=== PATIENT | male | born 1960 | race Caucasian/White ===

== ENCOUNTER 2021-02-26 06:05 | Emergency (ER) | payer OTHER, SELFPAY ==
[2021-02-26] VITALS (9 sets, daily range): BP systolic 104–144; BP diastolic 73–105; PULSE 66–93; RESP 16–18; TEMP 36.1; O2SAT 95–99
[2021-02-26] MEDS: KETOROLAC 30 MG/ML VIAL (*BKC) IM (08:02)
--- NOTE | 2021-02-26 08:37 | ED.BACK ---
HPI - Back Pain/Injury General Chief Complaint: Back Pain/Injury Stated Complaint: left lower back pain Time Seen by Provider: 02/26/21 07:43 Source: patient History of Present Illness HPI Narrative: Patient presents with lower back pain. Pain reports symptoms started this morning. He reports he was helping with decorations yesterday but felt fine when he went to bed he woke up to use the restroom he noted left-sided back pain. His pain is constantly dull but then will have intermittent sharp crampy sensations. It is triggered with body movement. It does not radiate denies any focal numbness or weakness denies any bowel or bladder incontinence denies any recent spinal instrumentation, IV drug use, personal history of malignancy, recent spinal instrumentation. Related Data Allergies Allergy/AdvReac Type Severity Reaction Status Date / Time No Known Allergies Allergy Mild Verified 02/26/21 06:22 Review of Systems Review of Systems: CONSTITUTIONAL: Denies fever, chills, or sweats. EYES: Denies visual changes, redness, or discharge. ENT: Denies rhinorrhea, congestion, sore throat, or otalgia. CARDIOVASCULAR: Denies chest pain, palpitations, or edema. RESPIRATORY: Denies cough or dyspnea. GASTROINTESTINAL: Denies abdominal pain, nausea, vomiting, or diarrhea. GENITOURINARY: Denies dysuria or hematuria. SKIN: Denies rash or itching. MUSCULOSKELETAL: Denies joint pain, or myalgia. NEUROLOGIC: Denies headache, numbness, dizziness, or weakness. PSYCHIATRIC: Denies anxiety or depression. All systems reviewed & are unremarkable except as noted in HPI and below PMFSH Past Medical History Medical History HLD (hyperlipidemia) HTN (hypertension) Platelets decreased Type 2 diabetes mellitus without complications Family History Family History Sibling Patient's sister is in good health Patient's brother is in good health Mother Family history of malignant neoplasm of brain Other Diabetes mellitus Family history of malignant neoplasm Hypertension Social History Social History Smoking status: Former smoker Smoking end date: 03/22/02 Alcohol intake: current Substance use: never Gender identity (if verbalized by the patient): Male Exam Narrative: GENERAL: Well-appearing, well-nourished, and in no acute distress. HEAD: Normocephalic, atraumatic. EYES: PERRLA and EOMI. ENT: Nares clear, no rhinorrhea or epistaxis. Mucous membranes moist. NECK: Supple. No masses. No JVD ABDOMEN: Soft, nontender, nondistended BACK: Mild tenderness palpation on the left paraspinal lumbar area around 3 to L5 no midline bony tenderness EXTREMITIES: Normal range of motion. No edema. SKIN: Warm, dry, no rash. NEURO: No focal deficits. Alert and oriented x3. PSYCH: Normal mood and affect. Course Reevaluation(s) Reevaluation #1: Patient is resting comfortably has not noted any significant change in symptoms. Symptoms likely represent muscle skeletal back pain and appropriate trial of outpatient supportive therapies. Patient is comfortable with the outpatient plan. Date: 02/26/21 Time: 08:39 Vital Signs Vital signs: Vital Signs Temperature 36.1 C L 02/26/21 06:10 Pulse Rate 85 02/26/21 06:10 Respiratory Rate 16 02/26/21 06:10 Blood Pressure 123/105 H 02/26/21 06:10 Pulse Oximetry 98 02/26/21 06:10 Temperature 36.1 C L 02/26/21 06:10 Pulse Rate 66 02/26/21 09:01 Respiratory Rate 18 02/26/21 09:01 Blood Pressure 144/76 H 02/26/21 09:01 Pulse Oximetry 99 02/26/21 09:01 MDM - Back Pain/Injury MDM Narrative Medical decision making narrative: H&P as above, vss, pt looks clinically well, exam with reproducible left lower back pain, labs/img considered, symptomatic relief available as needed, patient treated with Toradol on reevaluation pt
== END 2021-02-26 09:04 | disposition home or self-care (01) ==
PROVIDERS: Emergency Provider Emergency Medicine; PCP Family Medicine
DX: M54.50 Low back pain, unspecified (principal); I10 Essential (primary) hypertension; E11.9 Type 2 diabetes mellitus without complications; E78.5 Hyperlipidemia, unspecified; Z87.891 Personal history of nicotine dependence
CPT/HCPCS: 96372; 99283; J1885

== ENCOUNTER 2022-08-10 06:17 | Day surgery (SDC) | payer OTHER, SELFPAY ==
[2022-06-22 13:57] VITALS: BMI 31.5
[2022-07-28 10:24] VITALS: BMI 30.3
--- NOTE | 2022-08-07 13:04 | WPDANESEPPF ---
Anes - Initial Pre Proc Eval Procedure: Operation Date: 08/10/22 08:00 Proposed Procedures p Screening Colonoscopy - Abdirahman Sloan MD Date/Time: 08/07/22 13:04 Surgeon: Abdirahman Sloan MD Pre Op Diagnosis: History of Polyps Patient Data Age: 62 Gender: M Height: 1.78 m Weight: 96 kg Allergies Allergy/AdvReac Type Severity Reaction Status Date / Time No Known Allergies Allergy Mild Verified 08/10/22 06:59 Home Medications Medication Instructions Recorded Confirmed Type insulin glargine 100 unit/mL (3 100 unit subcut QPM #45 mL 03/04/22 08/10/22 Rx mL) subcutaneous pen (Basaglar KwikPen U-100 Insulin) metoprolol succinate 200 mg See Rx Instructions .Route 04/10/22 08/10/22 Rx tablet,extended release 24 hr .COMPLEX #90 tabs pen needle, diabetic 31 gauge x See Rx Instructions .Route QPM #90 04/10/22 08/10/22 Rx 3/16 (BD Ultra-Fine Mini Pen ea Needle) sitagliptin phosphate 100 mg 100 mg PO DAILY #90 tabs 04/28/22 08/10/22 Rx tablet (Januvia) lisinopril 40 mg tablet 40 mg PO DAILY #90 tabs 05/21/22 08/10/22 Rx rosuvastatin 40 mg tablet 40 mg PO DAILY #90 tabs 05/21/22 08/10/22 Rx semaglutide 0.25 mg or 0.5 mg (2 0.25 mg (0.2 mL) subcut WEEKLY 05/21/22 08/10/22 Rx mg/1.5 mL) subcutaneous pen #1.5 mL injector (Ozempic) diltiazem HCl 420 mg capsule,24 420 mg PO DAILY #90 caps 06/12/22 08/10/22 Rx hr,extended release empagliflozin 25 mg tablet See Rx Instructions .Route 06/12/22 08/10/22 Rx (Jardiance) .COMPLEX #90 tabs ezetimibe 10 mg tablet 10 mg PO DAILY #90 tabs 06/12/22 08/10/22 Rx guanfacine 1 mg tablet 1 mg PO DAILY #90 tabs 06/12/22 08/10/22 Rx Patient hx anesthesia problems: none Family hx anesthesia problems: none Results Review: All pre-operative results and documents have been reviewed as part of the pre-operative evaluation. [facility] Past Medical History Medical History HLD (hyperlipidemia) HTN (hypertension) Platelets decreased Type 2 diabetes mellitus without complications Family History Family History Sibling Patient's sister is in good health Patient's brother is in good health Mother Family history of malignant neoplasm of brain Other Diabetes mellitus Family history of malignant neoplasm Hypertension Social History Social History Smoking packs per day: 0.5 Smoking cigarettes per day: 10.0 Years smoked: 20 Smoking pack-years: 10.00 Smoking status: Former smoker Tobacco type: cigarettes Smoking end date: 03/22/02 Alcohol intake: current Drinks per week: 5 Substance use: never Substance use type: does not use Living arrangements: with family Occupation/Education: occupation Gender identity (if verbalized by the patient): Male Sexual Orientation (if Verbalized by the Patient): Straight or Heterosexual Spiritual care concerns: No Anes - Eval Final PreProcedure Day of Procedure 08/07/22 13:04 Patient weight: obese Heart: regular rate and rhythm Lungs: clear to auscultation Airway: Mallampati scale class II Neurological: alert and oriented Last oral intake: >/= 8 hours ASA classification: III Emergent: no Anesthetic plan: proceed Anesthesia type and monitoring: general GIVS and standard monitoring Results Review: All pre-operative results and documents have been reviewed as part of the pre-operative evaluation. Informed Consent: The patient's anesthetic plan and its attendant risks and benefits were discussed with the patient/family/POA. Questions were solicited and answers provided to the satisfaction of the patient/family/POA.
--- NOTE | 2022-08-07 16:03 | PM.HPGS ---
History of Present Illness History of Present Illness Consent: Risks, benefits, and alternatives have been discussed and questions answered. Patient agrees to proceed with procedure. Chief complaint: History of Polyps Narrative: Rodrigo Clark is a 62 year old male Who was referred for colon cancer screening. Five years ago he had a colonoscopy with removal of 7 polyps, all but 1 of which were adenomas. Review of Systems Review of Systems: All systems reviewed & are unremarkable except as noted in HPI and below PMFSH Past Medical History Medical History HLD (hyperlipidemia) HTN (hypertension) Platelets decreased Type 2 diabetes mellitus without complications Family History Family History Sibling Patient's sister is in good health Patient's brother is in good health Mother Family history of malignant neoplasm of brain Other Diabetes mellitus Family history of malignant neoplasm Hypertension Social History Social History Smoking packs per day: 0.5 Smoking cigarettes per day: 10.0 Years smoked: 20 Smoking pack-years: 10.00 Smoking status: Former smoker Tobacco type: cigarettes Smoking end date: 03/22/02 Alcohol intake: current Alcohol use details: 2 drinks/day Substance use: never Substance use type: does not use Living arrangements: with family Occupation/Education: occupation Gender identity (if verbalized by the patient): Male Sexual Orientation (if Verbalized by the Patient): Straight or Heterosexual Spiritual care concerns: No Meds Home Medications and Allergies Home Medications Medication Instructions Recorded Confirmed Type insulin glargine 100 unit/mL (3 100 unit subcut QPM #45 mL 03/04/22 08/10/22 Rx mL) subcutaneous pen (Basaglar KwikPen U-100 Insulin) metoprolol succinate 200 mg See Rx Instructions .Route 04/10/22 08/10/22 Rx tablet,extended release 24 hr .COMPLEX #90 tabs pen needle, diabetic 31 gauge x See Rx Instructions .Route QPM #90 04/10/22 08/10/22 Rx 3/16 (BD Ultra-Fine Mini Pen ea Needle) sitagliptin phosphate 100 mg 100 mg PO DAILY #90 tabs 04/28/22 08/10/22 Rx tablet (Januvia) lisinopril 40 mg tablet 40 mg PO DAILY #90 tabs 05/21/22 08/10/22 Rx rosuvastatin 40 mg tablet 40 mg PO DAILY #90 tabs 05/21/22 08/10/22 Rx semaglutide 0.25 mg or 0.5 mg (2 0.25 mg (0.2 mL) subcut WEEKLY 05/21/22 08/10/22 Rx mg/1.5 mL) subcutaneous pen #1.5 mL injector ([employer]) diltiazem HCl 420 mg capsule,24 420 mg PO DAILY #90 caps 06/12/22 08/10/22 Rx hr,extended release empagliflozin 25 mg tablet See Rx Instructions .Route 06/12/22 08/10/22 Rx (Jardiance) .COMPLEX #90 tabs ezetimibe 10 mg tablet 10 mg PO DAILY #90 tabs 06/12/22 08/10/22 Rx guanfacine 1 mg tablet 1 mg PO DAILY #90 tabs 06/12/22 08/10/22 Rx Allergies Allergy/AdvReac Type Severity Reaction Status Date / Time No Known Allergies Allergy Mild Verified 08/10/22 06:59 Exam Resp: Auscultation: clear to auscultation bilaterally Cardio: Rate: regular rate Rhythm: regular rhythm GI: GI Palp: Yes Soft to palpation and No Tenderness to palpation present (GI) Assessment and Plan Assessment and plan (1) Colon cancer screening: Code(s): Z12.11 - Encounter for screening for malignant neoplasm of colon Status: Acute Assessment and Plan: Colonoscopy with possible biopsy or polypectomy or cautery or injection of substances.
[2022-08-10 07:00] VITALS: BP 155/90; PULSE 85; RESP 18; TEMP 36.6; O2SAT 99
[2022-08-10] MEDS: LACTATED RINGERS 1,000 ML 150 ML IV CONT (07:21)
[2022-08-10 08:14] VITALS: BP 109/61; PULSE 73; RESP 16; O2SAT 98
[2022-08-10 08:24] VITALS: BP 110/68; PULSE 71; RESP 20; O2SAT 98
[2022-08-10 08:34] VITALS: BP 118/79; PULSE 69; RESP 20; O2SAT 98
[2022-08-10 08:46] LABS: Glucose Point of Care 214 mg/dl (65-105)
--- NOTE | 2022-08-10 13:19 | WPDANESPN ---
Anes - Prog Note Post-Op Date/Time: 08/10/22 13:19 Cardiovascular status: normal Respiratory status: normal Airway patency: baseline Mental status: baseline Post-Op hydration status: normal Vital Signs: Last Vital Signs Temp 36.6 C 08/10/22 07:00 Pulse 69 08/10/22 08:34 Resp 20 08/10/22 08:34 BP 118/79 08/10/22 08:34 Pulse Ox 98 08/10/22 08:34 O2 Del Method Room Air 08/10/22 08:34 Pain Score (VAS): 0 I/O: Intake & Output 08/09/22 08/10/22 08/10/22 23:59 07:59 15:59 Intake Total 350 Balance 350 08/10/22 08:43 POC Capillary Glucose 214 H Post-procedural complaints: none Patient Feedback: Patient satisfied with anesthetic care. Other Findings: Patient vital signs back to baseline. Patient denies nausea and vomiting. Patient's pain under control. Patient OK for discharge.
== END 2022-08-10 08:55 | disposition home or self-care (01) ==
PROVIDERS: PCP Family Medicine; Visit Provider Internal Medicine Gastroenterology
PROC: 0DJD8ZZ Inspection of Lower Intestinal Tract, Via Natural or Artificial Opening Endoscopic (ICD-10-PCS; CPT 45378; principal; 2022-08-10 08:00)
DX: Z12.11 Encounter for screening for malignant neoplasm of colon (principal)
CPT/HCPCS: 45385; 45380

== ENCOUNTER 2022-08-10 09:00 | Outpatient (NON) | payer OTHER, SELFPAY | END 2022-08-10 09:01 | disposition home or self-care (01) | LOC: ANHLAB 08-11 07:47 | PROVIDERS: PCP Family Medicine; Visit Provider Internal Medicine Gastroenterology | DX: Z12.11 Encounter for screening for malignant neoplasm of colon (principal) | CPT/HCPCS: 88305 ==

== ENCOUNTER → 2023-01-20 11:10 | Outpatient (CLI) | payer OTHER, SELFPAY ==
--- NOTE | ~2023-01-20 | US_ITS ---
EXAMINATION: US soft tissue UE LT DATE: 01/20/2023 11:22 INDICATION: Lump at the volar aspect of the left wrist TECHNIQUE: Multiple grayscale and Doppler ultrasound images of the region of concern at the volar asp ect of the left wrist were obtained. COMPARISON: None FINDINGS: There is a 6 x 6 x 3 mm multilobulated cystic lesion at the region of concern which appears to repres ent a ganglion cyst tracking back to the radiocarpal articulation of the wrist joint. This lies along the deep margin of the radial artery and veins. No evident internal vascular flow within the ganglio n cyst or surrounding hyperemia on color Doppler. IMPRESSION: 1. Palpable lump of concern corresponds to a 6 x 6 x 3 mm likely ganglion cyst arising from the wrist joint. Reviewed, dictated and finalized at location A.
== END ==
PROVIDERS: PCP Family Medicine; Visit Provider Physician Assistant Medical
DX: M25.9 Joint disorder, unspecified (principal)
CPT/HCPCS: 76882

== ENCOUNTER 2024-07-11 13:42 | Outpatient (CLI) | payer OTHER, SELFPAY ==
--- NOTE | ~2024-07-11 | XR_ITS ---
XR hand LT min 3V Ordering provider: Regan Waddell MD History: . M18.12 - Unilateral primary osteoarthritis of first carpo... . Comparison: None. FINDINGS: BONES: No acute fracture or dislocation. JOINT SPACES: Narrowing of the distal interphalangeal joints. Osteoarthritic changes of the first car pometacarpal joint. SOFT TISSUES: Unremarkable. IMPRESSION: No acute osseous abnormality left hand. Polyarticular osteoarthritic changes. Reviewed, dictated and finalized at location A.
== END 2024-07-11 13:43 | disposition home or self-care (01) ==
PROVIDERS: PCP Family Medicine; Visit Provider Plastic Surgery
DX: M18.12 Unilateral primary osteoarthritis of first carpometacarpal joint, left hand (principal)
CPT/HCPCS: 73130